=== PATIENT | female | born 1970 | race Caucasian/White ===

== ENCOUNTER 2019-01-17 12:38 | Emergency (ER) | payer BC ==
[2019-01-17 12:45] VITALS: BP 132/78
--- NOTE | 2019-01-17 13:06 | UC ---
Throat Pain/Nasal Daniel HPI - HPI Summary HPI Summary: 48 old female with head congestion over the past 2 weeks and now with sinus congestion and pressure. - History of Current Complaint Chief Complaint: UCGeneralIllness Stated Complaint: COUGH SORE THROAT Time Seen by Provider: 01/17/19 13:06 Hx Obtained From: Patient Hx Last Menstrual Period: 12/21/18 ?: No Onset/Duration: Gradual Onset Severity: Moderate Pain Intensity: 6 Cough: Nonproductive Associated Signs & Symptoms: Positive: Sinus Discomfort, Nasal Discharge Related History: Seasonal Allergies - Epiglottits Risk Factors Epiglottis Risk Factors: Negative - Allergies/Home Medications Allergies/Adverse Reactions: Allergies Allergy/AdvReac Type Severity Reaction Status Date / Time codeine Allergy Nausea Uncoded 01/17/19 12:46 Home Medications: Home Medications Dextroamp-Amphetamin 30 mg Tab 30 mg PO DAILY 01/17/19 [History Confirmed ] FLUoxetine CAP* [Prozac CAP*] 20 mg PO DAILY 01/17/19 [History Confirmed ] Melatonin 5 mg PO DAILY 01/17/19 [History Confirmed 01/17/19] PMH/Surg Hx/FS Hx/Imm Hx Previously Healthy: Yes - Surgical History Surgical History: Yes Surgery Procedure, Year, and Place: KIDNEY STONES. 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 TONSILS 1991. WISDOM TEETH. RIGHT BREAST BIOPSY - Family History Known Family History: Positive: None - Social History Occupation: Employed Full-time Alcohol Use: Occasionally Substance Use Type: None Smoking Status (MU): Never Smoked Tobacco Review of Systems All Other Systems Reviewed And Are Negative: Yes ENT: Positive: Nasal Discharge, Sinus Congestion, Sinus Pain/Tenderness Respiratory: Positive: Negative Cardiovascular: Positive: Negative Is Patient Immunocompromised?: No Physical Exam Triage Information Reviewed: Yes Appearance: Well-Appearing, No Pain Distress, Well-Nourished Vital Signs: Initial Vital Signs Temp 99 F 01/17/19 12:41 Pulse 87 01/17/19 12:41 Resp 18 01/17/19 12:41 BP 132/78 01/17/19 12:41 Pulse Ox 100 01/17/19 12:41 Vital Signs Reviewed: Yes ENT Exam: Normal ENT: Positive: Hearing grossly normal, Nasal congestion, Nasal drainage, TMs normal, Sinus tenderness, Uvula midline, Other - Purulent yellow postnasal drainage as well as purulent nasal coryza with inflamed turbinates especially on the left side. Bilateral maxillary sinus tenderness on palpation. Negative : Tonsillar swelling, Tonsillar exudate, Trismus, Muffled voice Neck exam: Normal Respiratory Exam: Normal Cardiovascular Exam: Normal Abdominal Exam: Normal Bowel Sounds: Positive: Present Musculoskeletal Exam: Normal Neurological Exam: Normal Psychological Exam: Normal Skin Exam: Normal Throat Pain/Nasal Course/Dx - Course Course Of Treatment: Patient has been comfortable here. At this point in time I believe she has a sinusitis. I'm going to treated with amoxicillin 875 mg by mouth twice a day. I am giving her Diflucan 150 mg to take if she develops a yeast infection with a repeat of that in one week if she continues to have symptoms of yeast infection as a result of taking the antibiotic. Patient is agreeable to this plan of action. - Differential Dx/Diagnosis Differential Diagnosis/HQI/PQRI: Sinusitis Provider Diagnosis: Sinusitis Discharge - Sign-Out/Discharge Documenting (check all that apply): Patient Departure All imaging exams completed and their final reports reviewed: No Studies - Discharge Plan Condition: Good Disposition: HOME Prescriptions: Amoxicillin PO (*) [Amoxicillin 875 MG (*)] 875 mg PO BID 10 Days #20 tab Fluconazole 150 MG TAB* [Diflucan 150 MG TAB*] 150 mg PO UC ONCE #2 tablet Patient Education Materials: Sinusitis (ED) Referrals: Earnestine Liz MD [Primary Care Provider] - Additional Instructions: Increase fluids. Follow up with your primary care provider if no improvement in 4 or 5 days. Use [id number] decongestant as we discussed. - Billing Disposition and Condition Condition: GOOD Disposition: Home - Attestation Statements Provider Attestation: I was available for consult. This patient was seen by the SHANTELLE. The patient was not presented to , seen by or examined by ia -Ely Eric MD
== END 2019-01-17 13:23 | disposition home or self-care (01) ==
LOC: UCEAST 12:38
DX: J32.9 Chronic sinusitis, unspecified (principal); Z88.8 Allergy status to other drugs, medicaments and biological substances
CPT/HCPCS: 99212; G0463